=== PATIENT | male | born 1940 | race Caucasian/White ===

== ENCOUNTER 2016-10-10 21:19 | Inpatient (IN) ==
[2016-10-10] MEDS ORDERED: FUROSEMIDE 40 MG/4 ML VIAL IV STA ×2 (21:53→23:08)
[2016-10-10] MEDS ORDERED: methylPREDNISolone SOD SUC 125 MG/2 ML VIAL IV STA (21:53)
[2016-10-10] MEDS ORDERED: ASPIRIN 325 MG TABLET PO STA (21:53)
[2016-10-10] MEDS ORDERED: LEVOFLOXACIN INJ 750 MG in PREMIX 1 EACH IV STA (21:53)
[2016-10-10] MEDS ORDERED: ALBUTEROL/IPRATROPIUM 3 ML NEB RESP TX STA ×2 (21:56→23:08)
--- NOTE | 2016-10-10 21:59 | Emergency Department Note ---
Arrival - Arrival Chief Complaint: Chest Pain Stated Complaint: SOB ED Nursing Triage Note: patient to triage with cough, sob, and congestion since "around ethan" patient has been becoming increasingly weak and tired since that time. patient states has an extensive cardiac history and recently moved to the area. Mode of Arrival: Ambulatory Limitations: No Limitations Source: Patient Time Seen by Provider: 10/10/16 21:53 - History of Present Illness HPI Narrative: This 76-year-old white male new resident of the area presents after moving here from [place]. He moved around the first of the year just after having been diagnosed with the flu. However, since moving here he has had persistent dry cough, shortness of breath with rest and exertion, orthopnea, nausea, night sweats, and intermittent chest pain consistent with previous experiences with angina. The patient denies a history of COPD but has an extensive coronary artery disease history with bypass, multiple stents, femoropopliteal bypass, and congestive heart failure. Currently he appears in no acute distress. Onset (ago): month(s) (patient presents one month since onset of symptoms) Consistency: constant Severity: moderate Allergies/Adverse Reactions: Allergies Allergy/AdvReac Type Severity Reaction Status Date / Time gabapentin AdvReac UNCONSCIOUS Verified 10/10/16 21:41 Penicillins AdvReac Drowsy Verified 10/10/16 21:41 Review of System - Review of System 12 point system: reviewed and no additional remarkable complaints except as stated - Review of System Constitutional: Present: as per HPI Respiratory: Present: as per HPI Cardiovascular: Present: as per HPI Gastrointestinal: Present: as per HPI Medical,Surgical,& Family Hx - Medical History Cardio: History of: CHF, Hypertension, [place] Endocrine: History of: Diabetes Mellitus (NIDDM) Respiratory: History of: Obstructive Sleep Apnea Genitourinary: History of: Prostate Problems (prostate CA) - Surgical History Cardiac Surgeries: Sugical HX of: Femoral-Popliteal Bypass Graft, Cardiac Catheterization - Social History Smoking Status: Never smoker Frequency of Alcohol Use: None Type of Drug Use: None Exam Physical Examination: GENERAL: Well developed, well nourished white male in no acute distress. HEENT: Normocephalic. No trauma. Moist mucous membranes. EOMI. PERRLA. ENT clear NECK: Supple. No adenopathy. No JVD CARDIAC: Regular. No murmurs. Heart rate 97 CHEST: Clear to auscultation. No respiratory distress. O2 sat 94% ABDOMEN: Soft. Nontender. Active bowel sounds. EXTREMITIES: No trauma. Normal ROM. No pedal edema. SKIN: No diaphoresis. No rash. NEURO: Alert. Neuro intact. No focal deficits. Vital Signs: Vital Signs Temperature 98 F 10/10/16 21:31 Pulse Rate 82 10/10/16 22:49 Respiratory Rate 16 10/10/16 22:49 Blood Pressure 176/91 10/10/16 21:31 O2 Sat by Pulse Oximetry 98 10/10/16 22:49 Course - Reevaluation(s) Reevaluation #1: Discussed with patient that both pneumonia and congestive failure are apparent in his workup and he will need to be hospitalized for further treatment. - Consultations Consultation #1: Discussed with Dr. Blackburn, hospitalist, who will admit for further evaluation treatment. Results - Labs CBC & BMP: 10/10/16 21:59 10/10/16 21:59 Labs: I have reviewed the laboratory noted the bump and white blood cell count, the negative cardiacs, and the BNP of over 500. - Diagnostic Findings Procedure: Chest x-ray: image reviewed by me, report reviewed by me (bilateral infiltrates right greater than left) Disposition Clinical Impression: bilateral pneumonia, congestive heart failure, coronary artery disease Case discussed with: patient, patient's family Disposition: Still a Patient Condition: Guarded Time of Disposition: 23:09
--- NOTE | 2016-10-10 22:00 | EKG Report ---
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
[2016-10-10 22:12] LABS: Basophils % 0.1 % (0.0-0.8); Eosinophils # 0.4 10*3/uL (0.0-0.87); Eosinophils % 3.2 % (0.00-10.9); Hematocrit 33.3 VOL% (42.0-52.0); Hemoglobin 10.6 GM/DL (14.0-18.0); Immature Granulocytes % 0.5 %; Immature Granulocytes Absolute 0.06 #; Lymphocytes # 1.4 10*3/uL (1.4-4.0); Lymphocytes % 11.9 % (21.2-54.2); Mean Corpuscular HGB Conc 31.8 GM/DL (32-36); Mean Corpuscular Hemoglobin 29 PG (27-34); Mean Corpuscular Volume 89.8 FL (87-102); Mean Platelet Volume 9.7 FL (9.6-12.0); Monocytes # 1.2 10*3/uL (0.11-0.8); Monocytes % 9.6 % (1.7-12.7); Neutrophils % 74.7 % (38.7-73.9); Platelet Count 345 10*3/uL (130-400); Red Blood Count 3.71 10*6/uL (3.8-5.5); Red Cell Distribution Width 14.5 % (9.3-17.3); White Blood Count 12.1 10*3/uL (4.5-13.71)
[2016-10-10 22:22] LABS: PT Patient Result 11.1 SECS
[2016-10-10] MEDS ORDERED: ASPIRIN 325 MG TABLET ONE (22:22)
[2016-10-10] MEDS ORDERED: LEVOFLOXACIN INJ 150 ML IV ONE (22:22)
[2016-10-10] MEDS ORDERED: FUROSEMIDE 40 MG/4 ML VIAL ONE ×2 (22:22→23:19)
[2016-10-10] MEDS ORDERED: methylPREDNISolone SOD SUC 125 MG/2 ML VIAL ONE (22:23)
[2016-10-10 22:41] LABS: Alanine Aminotransferase 12 U/L (16-61); Albumin 2.4 G/DL (3.4-5.0); Alkaline Phosphatase 82 U/L (45-117); Aspartate Amino Transferase 11 U/L (0-37); Blood Urea Nitrogen 9 MG/DL (7-18); Glucose 201 MG/DL (74-106); Osmolality,Calculated 285.3 MOS/KG (273-304); Potassium 3.8 MMOL/L (3.5-5.1); Sodium 141 MMOL/L (136-145); Troponin I Only < 0.015 NG/ML (0.00-0.045)
--- NOTE | 2016-10-10 22:43 | XRay Report ---
History is chest pain The heart and vessels are mildly enlarged There are moderate to tickler hazy and patchy opacities throughout the right chest and minimally in the lateral left chest. Skinfold felt overlie the right upper chest Impression: Right greater than left infiltrates. Atypical, asymmetric pulmonary edema felt be a less likely consideration PROCEDURE INTERPRETED AT [facility] DEPARTMENT OF RADIOLOGY Final Report Signed by: Dr. Cher Mcclelland
[2016-10-10 22:54] LABS: Apearance,Urine CLEAR (Clear); Bilirubin,Urine Negative (Negative); Blood, Urine Negative (Negative); Glucose,Urine (UA) 50 mg/dL (Negative); Ketones,Urine Negative (Negative); Nitrite,Urine Negative (Negative); Protein,Urine 30 MG/DL; RBC,Urine 3 /HPF (0-4); Urine Color Yellow (Yellow); Urine Specific Gravity 1.013 (1.001-1.035); WBC,Urine <1 /HPF (0-6)
[2016-10-10 23:00] LABS: Barbiturates Screen,Urine Negative (Negative); Benzodiazepines Screen,Urine Negative (Negative); Cannabinoid Screen,Urine Negative (Negative); Opiate Screen,Urine Negative (Negative); Phencyclidine Screen,Urine Negative (Negative)
--- NOTE | 2016-10-11 01:56 | Hospitalist History & Physical ---
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 Nguyen is a 76 year old male with past medical history significant for coronary artery disease, congestive heart failure, hypertension, obstructive sleep apnea and prostate cancer who's been feeling, poorly ever since . Patient recently moved here from [place] and has not established care with a primary care provider. He reports that he thought he had the flu during the time and ever since then he's had fever off and on and night sweats. He notes a decreased exercise tolerance. He's had a productive cough for at least a week. He thought he was getting worse. He came up to our hospital further evaluation. He has a pneumonia by chest x-ray but a suspect he has a combination of pneumonia and congestive heart failure. I was consulted to admit the patient Home Medications Medication Instructions Recorded Confirmed Type Aromatic Cascara Fluid Extract 1 caplet PO DAILY 10/10/16 10/10/16 History [Cascara [place]] Aspirin [Ecotrin] 81 mg PO DAILY 10/10/16 10/10/16 History Cholecalciferol (Vitamin D3) 4,000 unit PO DAILY 10/10/16 10/10/16 History [Vitamin D3] Clopidogrel [Plavix] 75 mg PO DAILY 10/10/16 10/10/16 History Cyanocobalamin (Vitamin B-12) 1,000 mcg PO DAILY 10/10/16 10/10/16 History [Vitamin B-12] Diltiazem HCl [Diltiazem ER (12 120 mg PO DAILY 10/10/16 10/10/16 History hr)] Doxepin [SINEquan] 6 mg PO BEDTIME 10/10/16 10/10/16 History Glimepiride 2 mg PO AC SUPPER 10/10/16 10/10/16 History Glimepiride 4 mg PO AC BREAKFAST 10/10/16 10/10/16 History Levocetirizine Dihydrochloride 5 mg PO DAILY 10/10/16 10/10/16 History Losartan Potassium 100 mg PO DAILY 10/10/16 10/10/16 History Lovastatin 40 mg PO DAILY 10/10/16 10/10/16 History Metformin HCl 850 mg PO BID 10/10/16 10/10/16 History Pantoprazole Sodium [Protonix] 40 mg PO DAILY 10/10/16 10/10/16 History Ranolazine [Ranexa] 1,000 mg PO BID 10/10/16 10/10/16 History Vit C/Shellie AC/Lut/Copper/Znox 1 each PO AC 10/10/16 10/10/16 History [Preservision Lutein Softgel] Allergies Allergy/AdvReac Type Severity Reaction Status Date / Time gabapentin AdvReac UNCONSCIOUS Verified 10/10/16 21:41 Penicillins AdvReac Drowsy Verified 10/10/16 21:41 Medical,Surgical,& Family Hx - Medical History Cardio: History of: CHF, Hypertension, [place] Endocrine: History of: Diabetes Mellitus (NIDDM) Respiratory: History of: Obstructive Sleep Apnea Genitourinary: History of: Prostate Problems (prostate CA) - Surgical History Cardiac Surgeries: Sugical HX of: Femoral-Popliteal Bypass Graft, Cardiac Catheterization - Family History Family History: Reports;: Family Cancer, Family Heart Disease - Social History Smoking Status: Never smoker Frequency of Alcohol Use: None Type of Drug Use: None 12 point system: reviewed and no additional remarkable complaints except as stated Exam - Constitutional Vitals: Period Temp Pulse Resp BP Sys/Swann Pulse Ox Last 24 Hr 98 F 79-97 16-23 176/91 94-99 General appearance: normal weight - Eye Eye exam: Present: EOMI Pupils: Present: BEBETO - ENT ENT exam: Present: normal exam - Neck Neck exam: Present: normal inspection - Cardiovascular Cardiovascular exam: Present: regular rate and rhythm - GI/Abdominal GI/Abdominal exam: Present: normal bowel sounds - Extremities Exam Extremities exam: Present: normal inspection - Back Exam Back exam: Present: normal inspection - Neurological Exam Neurological exam: Present: alert - Psychiatric Psychiatric exam: Present: normal affect - Skin Skin exam: Present: normal color Results - Labs CBC & BMP: 10/10/16 21:59 10/10/16 21:59
[2016-10-11] MEDS ORDERED: MAGNESIUM SULF RIDER 2 GM in PREMIX 1 EACH IV PRN (02:11)
[2016-10-11] MEDS ORDERED: MAGNESIUM SULF RIDER 4 GM in PREMIX 1 EACH IV PRN (02:11)
[2016-10-11] MEDS ORDERED: ACETAMINOPHEN 325 MG TABLET PO PRN (02:11)
[2016-10-11] MEDS ORDERED: ONDANSETRON 4 MG/2 ML VIAL IV PRN (02:11)
[2016-10-11] MEDS ORDERED: ALBUTEROL 2.5 MG/3 ML NEB RESP TX PRN (02:11)
[2016-10-11] MEDS ORDERED: GLUCAGON 1 MG VIAL IM PRN (03:46)
[2016-10-11] MEDS ORDERED: DEXTROSE 50% 25 GM/50 ML VIAL IV PRN (03:46)
[2016-10-11] MEDS: ALBUTEROL/IPRATROPIUM 3 ML NEB RESP TX SCH ×3 (08:19→19:41)
[2016-10-11] MEDS ORDERED: PANTOPRAZOLE 40 MG TABLET PO SCH (09:00)
[2016-10-11] MEDS: CHOLECALCIFEROL 1,000 UNIT TABLET PO SCH (09:38)
[2016-10-11] MEDS: RANOLAZINE 500 MG TABLET PO SCH ×2 (09:39→21:24)
[2016-10-11] MEDS: CYANOCOBALAMIN 500 MCG TABLET PO SCH (09:39)
[2016-10-11] MEDS: LOSARTAN 50 MG TABLET PO SCH (09:41)
[2016-10-11] MEDS: LOVASTATIN 20 MG TABLET PO SCH (09:41)
[2016-10-11] MEDS: ASPIRIN EC 81 MG TABLET PO SCH (09:42)
[2016-10-11] MEDS: PANTOPRAZOLE 40 MG TABLET PO SCH (09:43)
[2016-10-11] MEDS: DILTIAZEM CD 120 MG CAPSULE PO SCH (09:43)
[2016-10-11] MEDS: CLOPIDOGREL 75 MG TABLET PO SCH (09:43)
[2016-10-11] MEDS: ENOXAPARIN 40 MG/0.4 ML SYRINGE SUBCUT SCH (09:48)
[2016-10-11] MEDS: INSULIN REGULAR 100 UNIT/ML SUBCUT SCH ×5 (09:51→21:24)
[2016-10-11] MEDS: FUROSEMIDE 40 MG/4 ML VIAL IV SCH ×2 (09:51→17:51)
--- NOTE | 2016-10-11 12:54 | ECHO Report ---
PatrickBeka kwongnis 10/11/2016 Exam Date: 08:05 Referring Physician: Annabelle Morales Technologist: JOHNNIE Age: 76 Ht (in): Wt (lb): MExam Location: [facility] Gender: Echo [id number]: Community acquired pneumonia, Acute Indications:excerbation of CHF, Essential (primary) hypertension, BARRERA, hx Prostate CA, Cough, Fever, NIDDM BP: / HR: SinusRhythm: Technical Quality: IMPRESSIONS Technically adequate study 3+ left atrial enlargement Normal LV function with ejection fraction at 55% without segmental wall motion normality Aortic sclerosis without stenosis 1-2 tricuspid regurgitation with RVP 29 mmHg plus RAP MEASUREMENTS (Male / Female) Normal Values 2D ECHO LV Diastolic Diameter PLAX 5.4 cm 4.2 - 5.9 / 3.9 - 5.3 cm LV Systolic Diameter PLAX 3.3 cm LV Fractional Shortening PLAX 38.3 % IVS Diastolic Thickness 1.5 cm 0.6 - 1.0 / 0.6 - 0.9 cm LVPW Diastolic Thickness 1.5 cm 0.6 - 1.0 / 0.6 - 0.9 cm RV Internal Dim ED PLAX 3.5 cm Aortic Root Diameter 3.5 cm LA Systolic Diameter LX 5.4 cm 3.0 - 4.0 / 2.7 - 3.8 cm DOPPLER TR Peak Velocity 269.0 cm/s TR Peak Gradient 28.9 mmHg FINDINGS Left Ventricle Normal left ventricular cavity size. Mild left ventricular hypertrophy. Left ventricular ejection fraction is estimated at 60 %. Right Ventricle The right ventricle is normal in size and function. Right Atrium The right atrium is mildly enlarged. Left Atrium Moderately increased left atrial size. Mitral Valve Morphologically normal mitral valve. Trace mitral valve regurgitation. Aortic Valve Aortic valve sclerosis without stenosis or regurgitation. Tricuspid Valve Morphologically normal tricuspid valve. Trace to mild tricuspid valve regurgitation. Tricuspid regurgitation velocities suggest a PAP of 39 mmHg. Pulmonic Valve Morphologically normal pulmonic valve without significant stenosis. There is no pulmonic regurgitation. Pericardium Normal pericardium without effusion. Aorta Normal ascending aorta dimension. Poli Cristobal (Electronically Signed) 11 October 2016 Final Date: 12:53
[2016-10-11] MEDS ORDERED: GLIMEPIRIDE 2 MG TABLET PO SCH (16:30)
[2016-10-11] MEDS: GLIMEPIRIDE 4 MG TABLET PO SCH (17:51)
[2016-10-11] MEDS: metFORMIN 850 MG TABLET PO SCH (21:24)
[2016-10-11] MEDS: LEVOFLOXACIN INJ 750 MG in PREMIX 1 EACH IV SCH (21:33)
[2016-10-11] MEDS: SILENOR 6 MG PO SCH (21:38)
[2016-10-12] MEDS: ALBUTEROL/IPRATROPIUM 3 ML NEB RESP TX SCH ×4 (01:21→21:39)
[2016-10-12 03:53] LABS: Basophils % 0.1 % (0.0-0.8); Eosinophils # 0.1 10*3/uL (0.0-0.87); Eosinophils % 0.6 % (0.00-10.9); Hematocrit 32.5 VOL% (42.0-52.0); Hemoglobin 10.6 GM/DL (14.0-18.0); Immature Granulocytes % 0.5 %; Immature Granulocytes Absolute 0.09 #; Lymphocytes # 1.8 10*3/uL (1.4-4.0); Mean Corpuscular HGB Conc 32.6 GM/DL (32-36); Mean Corpuscular Hemoglobin 29 PG (27-34); Mean Corpuscular Volume 88.1 FL (87-102); Mean Platelet Volume 9.6 FL (9.6-12.0); Monocytes # 1.5 10*3/uL (0.11-0.8); Monocytes % 8.5 % (1.7-12.7); Neutrophils # 14.5 10*3/uL (1.4-7.4); Neutrophils % 80.3 % (38.7-73.9); Platelet Count 341 10*3/uL (130-400); Red Blood Count 3.69 10*6/uL (3.8-5.5); Red Cell Distribution Width 14.3 % (9.3-17.3); White Blood Count 18.1 10*3/uL (4.5-13.71)
[2016-10-12 04:27] LABS: Alanine Aminotransferase 9 U/L (16-61); Albumin 2.4 G/DL (3.4-5.0); Alkaline Phosphatase 72 U/L (45-117); Aspartate Amino Transferase 5 U/L (0-37); Bilirubin,Total < 0.39 MG/DL (0.2-1.0); Blood Urea Nitrogen 21 MG/DL (7-18); Calcium 8.5 MG/DL (8.5-10.1); Glucose 163 MG/DL (74-106); Osmolality,Calculated 283.5 MOS/KG (273-304); Potassium 3.3 MMOL/L (3.5-5.1); Sodium 139 MMOL/L (136-145); Total Protein 5.9 G/DL (6.4-8.3)
[2016-10-12] MEDS ORDERED: GLIMEPIRIDE 4 MG TABLET PO SCH (07:30)
--- NOTE | 2016-10-12 09:52 | XRay Report ---
Exam: Chest 2 views Date: October 12, 2016 at 6:59 AM Comparison: Chest one view portable October 10, 2016 Reason: Shortness of breath Findings: The cardiac silhouette is upper normal in size, and the patient is status post sternotomy. There are scattered opacities within the mid and lower lung zones bilaterally, mainly on the right. This is concerning for pneumonia, but there could be an underlying component of scarring/fibrosis. No pneumothorax is identified, and no definite pleural fluid is seen. The osseous structures appear stable. Impression: There are scattered opacities within both lungs, mainly on the right. These opacities have slightly improved. This is concerning for pneumonia, but there could be underlying scarring/fibrosis. Followup is recommended to confirm resolution. PROCEDURE INTERPRETED AT [facility] DEPARTMENT OF RADIOLOGY Final Report Signed by: Dr. Joey Moralez
[2016-10-12] MEDS: INSULIN REGULAR 100 UNIT/ML SUBCUT SCH ×4 (10:18→20:35)
[2016-10-12] MEDS: FUROSEMIDE 40 MG/4 ML VIAL IV SCH ×2 (10:19→15:52)
[2016-10-12] MEDS: GLIMEPIRIDE 4 MG TABLET PO SCH ×2 (10:19→16:55)
[2016-10-12] MEDS: metFORMIN 850 MG TABLET PO SCH ×2 (10:20→20:35)
[2016-10-12] MEDS: LOSARTAN 50 MG TABLET PO SCH (10:20)
[2016-10-12] MEDS: DILTIAZEM CD 120 MG CAPSULE PO SCH (10:20)
[2016-10-12] MEDS: LOVASTATIN 20 MG TABLET PO SCH (10:20)
[2016-10-12] MEDS: ASPIRIN EC 81 MG TABLET PO SCH (10:20)
[2016-10-12] MEDS: ENOXAPARIN 40 MG/0.4 ML SYRINGE SUBCUT SCH (10:20)
[2016-10-12] MEDS: CLOPIDOGREL 75 MG TABLET PO SCH (10:20)
[2016-10-12] MEDS: PANTOPRAZOLE 40 MG TABLET PO SCH (10:21)
[2016-10-12] MEDS: RANOLAZINE 500 MG TABLET PO SCH ×2 (10:21→20:35)
[2016-10-12] MEDS: CHOLECALCIFEROL 1,000 UNIT TABLET PO SCH (10:22)
[2016-10-12] MEDS: CETIRIZINE 10 MG TABLET PO SCH (10:22)
[2016-10-12] MEDS: CYANOCOBALAMIN 500 MCG TABLET PO SCH (10:22)
--- NOTE | 2016-10-12 11:06 | Hospitalist Progress Note ---
Assessment and Plan (1) Anemia Status: Chronic Assessment and plan: Patient apparently have stable anemia probably chronic with continue monitoring Current Visit: Yes (2) Acute exacerbation of congestive heart failure Status: Acute Assessment and plan: Interval symptoms noted with the current management left ventricular ejection fraction noted patient could have diastolic dysfunction which closely as he may be sensitive to diuretics Current Visit: Yes (3) Community acquired pneumonia Status: Acute Assessment and plan: X-ray noted with bilateral opacities specially on right side with some improvement on today's x-ray reported. Symptomatically patient is better although white count is elevated today he has been on Levaquin and continue and repeat CBC tomorrow Current Visit: Yes (4) Hypertension Status: Acute Current Visit: Yes (5) Hypokalemia Status: Acute Assessment and plan: Will replace with potassium chloride Current Visit: Yes Hospitalist: Subjective Interval history: Mr. Nguyen is a 76 year old male with past medical history significant for coronary artery disease s/p CBD and multiple PCI, , congestive heart failure, hypertension, obstructive sleep apnea and prostate cancer. He was admitted yesterday after he reported having persistent dry cough shortness of breath with both dyspnea on exertion and orthopnea with intermittent fever. Reported fever 2 days prior to admission. He had just moved from [place] and has not established any primary care here. Patient was started on diuretics and antibiotics. He had echocardiogram done showed left frontal ejection fraction of 60% with mild left ventricle hypertrophy and dilated left atrium. Symptomatically improved afebrile. still coughing. Exam - Constitutional Vitals: Period Temp Pulse Resp BP Sys/Swann Pulse Ox Last 24 Hr 97.5 F-98.6 F 68-94 16-25 134-153/61-79 90-99 General appearance: no acute distress - Head Head exam: Present: normal inspection, normocephalic - Eye Eye exam: Present: EOMI Pupils: Present: BEBETO - Respiratory Respiratory exam: Present: rales (equal air entry with some rales on the right side with auscultation ). Absent: rhonchi - Cardiovascular Cardiovascular exam: Present: regular rate and rhythm. Absent: JVD, tachycardia - GI/Abdominal GI/Abdominal exam: Present: normal bowel sounds, soft. Absent: tenderness - Extremities Exam Extremities exam: Present: normal inspection. Absent: edema - Neurological Exam Neurological exam: Present: alert, oriented X3 Results - Labs CBC & BMP: 10/12/16 03:44 10/12/16 03:44 Lab Results: I have reviewed the past 24 hour labs
[2016-10-12] MEDS ORDERED: POTASSIUM CHLORIDE 20 MEQ TABLET PO ONE (11:15)
[2016-10-12] MEDS: LEVOFLOXACIN INJ 750 MG in PREMIX 1 EACH IV SCH (20:35)
[2016-10-12] MEDS: SILENOR 6 MG PO SCH (21:01)
[2016-10-13] MEDS: ALBUTEROL/IPRATROPIUM 3 ML NEB RESP TX SCH ×4 (01:15→19:34)
[2016-10-13 04:32] LABS: Eosinophils # 0.3 10*3/uL (0.0-0.87); Eosinophils % 2.5 % (0.00-10.9); Hemoglobin 11.2 GM/DL (14.0-18.0); Immature Granulocytes % 0.5 %; Immature Granulocytes Absolute 0.06 #; Lymphocytes # 1.5 10*3/uL (1.4-4.0); Lymphocytes % 12.3 % (21.2-54.2); Mean Corpuscular HGB Conc 31.1 GM/DL (32-36); Mean Corpuscular Hemoglobin 28 PG (27-34); Mean Corpuscular Volume 89.3 FL (87-102); Monocytes # 1.3 10*3/uL (0.11-0.8); Monocytes % 10.5 % (1.7-12.7); Neutrophils # 8.8 10*3/uL (1.4-7.4); Neutrophils % 74.2 % (38.7-73.9); Platelet Count 355 10*3/uL (130-400); Red Blood Count 4.03 10*6/uL (3.8-5.5); Red Cell Distribution Width 14.6 % (9.3-17.3); White Blood Count 11.9 10*3/uL (4.5-13.71)
[2016-10-13 05:04] LABS: Calcium 8.7 MG/DL (8.5-10.1); Osmolality,Calculated 281.4 MOS/KG (273-304); Potassium 4.5 MMOL/L (3.5-5.1)
[2016-10-13] MEDS: FUROSEMIDE 40 MG/4 ML VIAL IV SCH (08:30)
--- NOTE | 2016-10-13 08:42 | Hospitalist Progress Note ---
Assessment and Plan (1) Anemia Status: Chronic Assessment and plan: Hemoglobin actually improved on CBC today is Current Visit: Yes (2) Acute exacerbation of congestive heart failure Status: Acute Assessment and plan: Symptomatically improved, volume status also close to euvolemic I will DC IV Lasix and switch to by mouth diuretic. Blood pressure is not optimally controlled we will add carvedilol 6.25 mg twice a day Current Visit: Yes (3) Community acquired pneumonia Status: Acute Assessment and plan: X-ray noted with bilateral opacities specially on right side with some improvement on today's x-ray reported. Symptomatically patient is better although white count was elevated yesterday at 18.1 is down to 11.9 today with continuing Levaquin but switched to by mouth. Patient will be discharged home and he will need a follow-up x-ray in probably 2-3 weeks after recovery to make sure opacities seen cleared Current Visit: Yes (4) Hypertension Status: Acute Current Visit: Yes (5) Hypokalemia Status: Acute Assessment and plan: Resolved Current Visit: Yes Hospitalist: Subjective Interval history: Mr. Nguyen is a 76 year old male with past medical history significant for coronary artery disease s/p CBD and multiple PCI, , congestive heart failure, hypertension, obstructive sleep apnea and prostate cancer. He was admitted yesterday after he reported having persistent dry cough shortness of breath with both dyspnea on exertion and orthopnea with intermittent fever. Reported fever 2 days prior to admission. He had just moved from [place] and has not established any primary care here. Patient was started on diuretics and antibiotics. He had echocardiogram done showed left frontal ejection fraction of 60% with mild left ventricle hypertrophy and dilated left atrium. Continued to improve symptomatically and remained afebrile Exam - Constitutional Vitals: Period Temp Pulse Resp BP Sys/Swann Pulse Ox Last 24 Hr 96.7 F-98.1 F 66-79 16-20 140-166/65-77 90-99 General appearance: no acute distress - Respiratory Respiratory exam: Present: clear to auscultation bilaterally (collected entry bilaterally). Absent: rales, rhonchi - Cardiovascular Cardiovascular exam: Present: regular rate and rhythm. Absent: JVD, tachycardia - GI/Abdominal GI/Abdominal exam: Present: normal bowel sounds, soft. Absent: tenderness - Extremities Exam Extremities exam: Present: normal inspection, edema (trace if any edema bilaterally and lower extremities) - Psychiatric Psychiatric exam: Present: normal affect, normal mood Results - Labs CBC & BMP: 10/13/16 03:49 10/13/16 03:49 Lab Results: I have reviewed the past 24 hour labs
[2016-10-13] MEDS: GLIMEPIRIDE 4 MG TABLET PO SCH ×2 (08:50→17:15)
[2016-10-13] MEDS: INSULIN REGULAR 100 UNIT/ML SUBCUT SCH ×4 (08:50→21:10)
[2016-10-13] MEDS: ASPIRIN EC 81 MG TABLET PO SCH (08:50)
[2016-10-13] MEDS: DILTIAZEM CD 120 MG CAPSULE PO SCH (08:50)
[2016-10-13] MEDS: CLOPIDOGREL 75 MG TABLET PO SCH (08:51)
[2016-10-13] MEDS: CHOLECALCIFEROL 1,000 UNIT TABLET PO SCH (08:51)
[2016-10-13] MEDS: RANOLAZINE 500 MG TABLET PO SCH ×2 (08:51→20:48)
[2016-10-13] MEDS: PANTOPRAZOLE 40 MG TABLET PO SCH (08:51)
[2016-10-13] MEDS: CETIRIZINE 10 MG TABLET PO SCH (08:51)
[2016-10-13] MEDS: LOVASTATIN 20 MG TABLET PO SCH (08:51)
[2016-10-13] MEDS: ENOXAPARIN 40 MG/0.4 ML SYRINGE SUBCUT SCH (08:51)
[2016-10-13] MEDS: LOSARTAN 50 MG TABLET PO SCH (08:51)
[2016-10-13] MEDS: metFORMIN 850 MG TABLET PO SCH ×2 (08:51→20:48)
[2016-10-13] MEDS: CYANOCOBALAMIN 500 MCG TABLET PO SCH (08:51)
[2016-10-13] MEDS: FUROSEMIDE 40 MG TABLET PO SCH ×2 (10:13→17:14)
[2016-10-13] MEDS: POLYETHYLENE GLYCOL POWDER 17 GM PACK PO SCH (10:50)
[2016-10-13] MEDS: CARVEDILOL 6.25 MG TABLET PO SCH ×2 (15:26→20:48)
[2016-10-13] MEDS: SILENOR 6 MG PO SCH (21:10)
[2016-10-14] MEDS: ALBUTEROL/IPRATROPIUM 3 ML NEB RESP TX SCH ×4 (00:17→19:45)
[2016-10-14] MEDS: POLYETHYLENE GLYCOL POWDER 17 GM PACK PO SCH (08:45)
[2016-10-14] MEDS: INSULIN REGULAR 100 UNIT/ML SUBCUT SCH ×4 (08:46→21:44)
[2016-10-14] MEDS: metFORMIN 850 MG TABLET PO SCH ×2 (08:46→20:57)
[2016-10-14] MEDS: ENOXAPARIN 40 MG/0.4 ML SYRINGE SUBCUT SCH (08:46)
[2016-10-14] MEDS: CYANOCOBALAMIN 500 MCG TABLET PO SCH (08:47)
[2016-10-14] MEDS: CARVEDILOL 6.25 MG TABLET PO SCH ×2 (08:47→20:58)
[2016-10-14] MEDS: CETIRIZINE 10 MG TABLET PO SCH (08:47)
[2016-10-14] MEDS: ASPIRIN EC 81 MG TABLET PO SCH (08:47)
[2016-10-14] MEDS: LEVOFLOXACIN 750 MG TABLET PO SCH (08:47)
[2016-10-14] MEDS: LOSARTAN 50 MG TABLET PO SCH (08:48)
[2016-10-14] MEDS: CHOLECALCIFEROL 1,000 UNIT TABLET PO SCH (08:48)
[2016-10-14] MEDS: GLIMEPIRIDE 4 MG TABLET PO SCH ×2 (08:49→16:11)
[2016-10-14] MEDS: FUROSEMIDE 40 MG TABLET PO SCH ×2 (08:49→16:11)
[2016-10-14] MEDS: CLOPIDOGREL 75 MG TABLET PO SCH (08:49)
[2016-10-14] MEDS: LOVASTATIN 20 MG TABLET PO SCH (08:49)
[2016-10-14] MEDS: RANOLAZINE 500 MG TABLET PO SCH ×2 (08:49→20:58)
[2016-10-14] MEDS: PANTOPRAZOLE 40 MG TABLET PO SCH (08:50)
--- NOTE | 2016-10-14 17:00 | Hospitalist Progress Note ---
Assessment and Plan (1) Community acquired pneumonia Status: Acute Assessment and plan: 1)CAP- likely gram positive- continue levaquin. 2)acute CHF- diuresed, coreg started. doing well. His heart failure is diastolic - his EF is 55% on echo. 3)dispo- home likely tomorrow. will need to choose a doctor for PCP so he can have outpatient follow up with CXR to document resolution of infiltrates. Current Visit: Yes (2) Acute exacerbation of congestive heart failure Status: Acute Current Visit: Yes (3) Hypertension Status: Acute Current Visit: Yes (4) Obstructive sleep apnea Status: Acute Current Visit: Yes (5) History of prostate cancer Status: Acute Current Visit: Yes (6) Anemia Status: Chronic Current Visit: Yes (7) Hypokalemia Status: Acute Current Visit: Yes Hospitalist: Subjective Interval history: Mr Nguyen is doing well, but continues to cough and his room air sat is 88%. He has had high blood sugars as high as 400, most recently 187. He would like to go home and I think if his sats are better on room air tomorrow , he is able to get around room on room air, and his glucoses are under better control he could go home. Exam - Constitutional Vitals: Period Temp Pulse Resp BP Sys/Swann Pulse Ox Last 24 Hr 97 F-99 F 65-79 16-20 139-160/61-75 92-98 General appearance: normal weight, no acute distress - Head Head exam: Present: normocephalic, atraumatic - Eye Eye exam: Present: EOMI. Absent: scleral icterus - Respiratory Respiratory exam: Present: rales (right lung field) - Cardiovascular Cardiovascular exam: Present: regular rate and rhythm - GI/Abdominal GI/Abdominal exam: Present: normal bowel sounds, soft. Absent: tenderness - Extremities Exam Extremities exam: Absent: edema Results - Labs CBC & BMP: 10/13/16 03:49 10/13/16 03:49 Lab Results: I have reviewed the past 24 hour labs
[2016-10-14] MEDS: SILENOR 6 MG PO SCH (20:58)
[2016-10-15] MEDS: ALBUTEROL/IPRATROPIUM 3 ML NEB RESP TX SCH ×4 (01:12→20:30)
[2016-10-15] MEDS: CHOLECALCIFEROL 1,000 UNIT TABLET PO SCH (08:29)
[2016-10-15] MEDS: POLYETHYLENE GLYCOL POWDER 17 GM PACK PO SCH (08:29)
[2016-10-15] MEDS: ENOXAPARIN 40 MG/0.4 ML SYRINGE SUBCUT SCH (08:29)
[2016-10-15] MEDS: INSULIN REGULAR 100 UNIT/ML SUBCUT SCH ×4 (08:29→21:14)
[2016-10-15] MEDS: FUROSEMIDE 40 MG TABLET PO SCH ×2 (08:30→16:29)
[2016-10-15] MEDS: CLOPIDOGREL 75 MG TABLET PO SCH (08:30)
[2016-10-15] MEDS: LOVASTATIN 20 MG TABLET PO SCH (08:30)
[2016-10-15] MEDS: ASPIRIN EC 81 MG TABLET PO SCH (08:31)
[2016-10-15] MEDS: CYANOCOBALAMIN 500 MCG TABLET PO SCH (08:31)
[2016-10-15] MEDS: RANOLAZINE 500 MG TABLET PO SCH ×2 (08:31→21:13)
[2016-10-15] MEDS: LOSARTAN 50 MG TABLET PO SCH (08:31)
[2016-10-15] MEDS: metFORMIN 850 MG TABLET PO SCH ×2 (08:32→21:13)
[2016-10-15] MEDS: LEVOFLOXACIN 750 MG TABLET PO SCH (08:32)
[2016-10-15] MEDS: CARVEDILOL 6.25 MG TABLET PO SCH ×2 (08:32→21:13)
[2016-10-15] MEDS: CETIRIZINE 10 MG TABLET PO SCH (08:32)
[2016-10-15] MEDS: PANTOPRAZOLE 40 MG TABLET PO SCH (08:32)
[2016-10-15] MEDS: GLIMEPIRIDE 4 MG TABLET PO SCH ×2 (08:32→16:29)
--- NOTE | 2016-10-15 10:40 | Hospitalist Progress Note ---
Assessment and Plan (1) Community acquired pneumonia Status: Acute Assessment and plan: Prolonged course historically with radiographic right lung infiltrate, still with reduced SaO2 off oxygen. Does have BARRERA under active therapy however echocardiogram showed no evidence of pulmonary hypertension. Current Visit: Yes (2) Diabetes mellitus Status: Chronic Current Visit: Yes Qualifiers: Diabetes mellitus type: type 2 (3) Atherosclerotic cardiovascular disease Status: Chronic Assessment and plan: History ACBG and fem-pop bypass grafting Current Visit: Yes Hospitalist: Subjective Interval history: 76 yo male with history of obstructive sleep apnea, ischemic cardiac disease ( normal LVEF), and several weeks of respiratory complaints with fever, cough, and night sweats admitted with right lung infiltrate predominately peripheral and mid lung zones with small effusion. Continues to have stable vital signs, however still using O2 supplementation. Exam - Constitutional Vitals: Period Temp Pulse Resp BP Sys/Swann Pulse Ox Last 24 Hr 97 F-98.9 F 67-86 16-20 134-155/63-72 92-99 General appearance: under weight - Respiratory Respiratory exam: Present: other (coarse breath sounds on the right). Absent: rales, rhonchi, wheezes - Cardiovascular Cardiovascular exam: Present: regular rate and rhythm - GI/Abdominal GI/Abdominal exam: Present: normal bowel sounds. Absent: distended, tenderness - Extremities Exam Extremities exam: Absent: edema - Neurological Exam Neurological exam: Present: alert, oriented X3 Results - Labs CBC & BMP: 10/13/16 03:49 10/13/16 03:49
[2016-10-15] MEDS: SILENOR 6 MG PO SCH (21:14)
[2016-10-16] MEDS: ALBUTEROL/IPRATROPIUM 3 ML NEB RESP TX SCH ×4 (00:42→20:10)
[2016-10-16 05:15] LABS: Osmolality,Calculated 279.7 MOS/KG (273-304); Potassium 4.2 MMOL/L (3.5-5.1)
--- NOTE | 2016-10-16 08:16 | Hospitalist Progress Note ---
Assessment and Plan (1) Community acquired pneumonia Status: Acute Assessment and plan: Prolonged course historically with radiographic right lung infiltrate, still not tolerant off oxygen. Does have BARRERA under active therapy however echocardiogram showed no evidence of pulmonary hypertension. Current Visit: Yes (2) Diabetes mellitus Status: Chronic Current Visit: Yes Qualifiers: Diabetes mellitus type: type 2 (3) Atherosclerotic cardiovascular disease Status: Chronic Assessment and plan: History ACBG and fem-pop bypass grafting Current Visit: Yes Hospitalist: Subjective Interval history: 76 yo male prolonged respiratory illness since [place] with cough, night sweats, dyspnea admitted with pulmonary infiltrates. LV systolic performance intact by echocardiogram. Continues afebrile with night sweats. Trial off O2 yesterday with recorded SaO2 of 95%. He feels no better at this time. Exam - Constitutional Vitals: Period Temp Pulse Resp BP Sys/Swann Pulse Ox Last 24 Hr 96.9 F-98.9 F 71-81 16-20 106-134/57-66 91-98 General appearance: under weight - Respiratory Respiratory exam: Absent: rales, rhonchi, wheezes - Cardiovascular Cardiovascular exam: Present: regular rate and rhythm - GI/Abdominal GI/Abdominal exam: Present: normal bowel sounds. Absent: organomegaly - Extremities Exam Extremities exam: Absent: edema - Neurological Exam Neurological exam: Present: alert, oriented X3 Results - Labs CBC & BMP: 10/13/16 03:49 10/16/16 04:24
[2016-10-16] MEDS: GLIMEPIRIDE 4 MG TABLET PO SCH ×2 (08:38→18:02)
[2016-10-16] MEDS: FUROSEMIDE 40 MG TABLET PO SCH ×2 (08:38→16:30)
[2016-10-16] MEDS: RANOLAZINE 500 MG TABLET PO SCH ×2 (08:39→20:58)
[2016-10-16] MEDS: CYANOCOBALAMIN 500 MCG TABLET PO SCH (08:39)
[2016-10-16] MEDS: LEVOFLOXACIN 750 MG TABLET PO SCH (08:39)
[2016-10-16] MEDS: ASPIRIN EC 81 MG TABLET PO SCH (08:39)
[2016-10-16] MEDS: PANTOPRAZOLE 40 MG TABLET PO SCH (08:39)
[2016-10-16] MEDS: LOSARTAN 50 MG TABLET PO SCH (08:39)
[2016-10-16] MEDS: ENOXAPARIN 40 MG/0.4 ML SYRINGE SUBCUT SCH (08:39)
[2016-10-16] MEDS: POLYETHYLENE GLYCOL POWDER 17 GM PACK PO SCH (08:39)
[2016-10-16] MEDS: CARVEDILOL 6.25 MG TABLET PO SCH ×2 (08:39→20:58)
[2016-10-16] MEDS: metFORMIN 850 MG TABLET PO SCH (08:39)
[2016-10-16] MEDS: CLOPIDOGREL 75 MG TABLET PO SCH (08:39)
[2016-10-16] MEDS: LOVASTATIN 20 MG TABLET PO SCH (08:39)
[2016-10-16] MEDS: CETIRIZINE 10 MG TABLET PO SCH (08:40)
[2016-10-16] MEDS: CHOLECALCIFEROL 1,000 UNIT TABLET PO SCH (08:40)
[2016-10-16] MEDS: INSULIN REGULAR 100 UNIT/ML SUBCUT SCH ×4 (08:41→20:57)
--- NOTE | 2016-10-16 11:44 | Pulmonology Consult Note ---
Assessment and Plan (1) Community acquired pneumonia Status: Acute Assessment and plan: His community-acquired pneumonia seems have followed the flu. A broader spectrum of bacteria. Would be concerned about possible staph. My concern is with no improvement in symptoms that he may have a resistant organism. Also must consider pulmonary thromboembolic disease. Metastatic disease would be far less likely. We will obtain chest CT PE protocol and plan bronchoscopy in the morning. He is on metformin so we will have to hold that and wait on the CT until early childhood education specialist. Current Visit: Yes (2) Obstructive sleep apnea Status: Acute Assessment and plan: Patient is using his CPAP at night regularly. Current Visit: Yes (3) History of prostate cancer Status: Acute Assessment and plan: No signs of any recurrent disease. Current Visit: Yes (4) Diabetes mellitus Status: Chronic Assessment and plan: Glucoses in the 200s and 300s. Needs tighter control. Current Visit: Yes Qualifiers: Diabetes mellitus type: type 2 (5) Atherosclerotic cardiovascular disease Status: Chronic Assessment and plan: No active angina. Normal LV function. Current Visit: Yes History of Present Illness Chief complaint: cough, shortness of breath History of present illness: Mr. Nguyen is a 76 year old male who had the onset of a flulike illness about a month ago living in [facility]. He had fever cough and congestion not really aching all over. He had a flu shot this year. He moved to [place]. He's purchased a plot of land outside of town and his son who works at the [employer] is going to retire and help take care of him in his old age there is he put it. The patient is a . He has a history of coronary disease and is had coronary bypass surgery and heart stents both more than 10 years ago. He has nitroglycerin but rarely has to use any. He is a nonsmoker. Since he got here he's had worsening symptoms with increased cough sputum production and a little fever. He's had night sweats. He's been in the hospital now for 5 days and just hasn't gotten better. He's not had any phlebitis. He's not coughed up any blood. He's not had any pleuritic chest pain. He is diabetic. He has obstructive sleep apnea. He had an echocardiogram during this hospitalization showing normal LV function and an estimated PA peak pressure of 39 which is not significantly elevated under the circumstances. Home Medications Medication Instructions Recorded Confirmed Type Aromatic Cascara Fluid Extract 1 caplet PO DAILY 10/10/16 10/10/16 History [Cascara Sagrada] Aspirin [Ecotrin] 81 mg PO DAILY 10/10/16 10/10/16 History Cholecalciferol (Vitamin D3) 4,000 unit PO DAILY 10/10/16 10/10/16 History [Vitamin D3] Clopidogrel [Plavix] 75 mg PO DAILY 10/10/16 10/10/16 History Cyanocobalamin (Vitamin B-12) 1,000 mcg PO DAILY 10/10/16 10/10/16 History [Vitamin B-12] Diltiazem HCl [Diltiazem ER (12 120 mg PO DAILY 10/10/16 10/10/16 History hr)] Doxepin [SINEquan] 6 mg PO BEDTIME 10/10/16 10/10/16 History Glimepiride 2 mg PO AC SUPPER 10/10/16 10/10/16 History Glimepiride 4 mg PO AC BREAKFAST 10/10/16 10/10/16 History Levocetirizine Dihydrochloride 5 mg PO DAILY 10/10/16 10/10/16 History Losartan Potassium 100 mg PO DAILY 10/10/16 10/10/16 History Lovastatin 40 mg PO DAILY 10/10/16 10/10/16 History Metformin HCl 850 mg PO BID 10/10/16 10/10/16 History Pantoprazole Sodium [Protonix] 40 mg PO DAILY 10/10/16 10/10/16 History Ranolazine [Ranexa] 1,000 mg PO BID 10/10/16 10/10/16 History Vit C/Shellie AC/Lut/Copper/Znox 1 each PO AC 10/10/16 10/10/16 History [Preservision Lutein Softgel] Allergies Allergy/AdvReac Type Severity Reaction Status Date / Time gabapentin AdvReac UNCONSCIOUS Verified 10/10/16 21:41 Penicillins AdvReac Drowsy Verified 10/10/16 21:41 12 point system: reviewed and no additional remarkable complaints except as stated - Constitutional Constitutional: Present: excessive sweating, fatigue, fever(s), night sweats - Cardiovascular Cardiovascular: Present: dyspnea, dyspnea on exertion - Respiratory Respiratory: Present: cough, dyspnea, dyspnea on exertion, change in phlegm color - Endocrine Endocrine: Present: other (he is diabetic on oral medications. They include metformin.) Exam (Pulmonay) H&P - Constitutional Vitals: Period Temp Pulse Resp BP Sys/Swann Pulse Ox Last 24 Hr 96.9 F-98.9 F 67-81 16-20 106-135/57-69 91-99 Exam: Patient is alert oriented. Cooperative. Vital signs are normal. He has no fever. HEENT: Pupils react to light. Throat is clear. Neck supple no bruits. Chest shows a few rhonchi on the right side but basically clear. Heart normal rate rhythm no murmurs no rubs no gallops. Abdomen soft nontender no masses. Bowel sounds are present. Extremities no clubbing cyanosis or edema. Calves nontender. Medical,Surgical,& Family Hx - Medical History Cardio: History of: CHF, Hypertension, [place], Cardiovascular Problems Neurology: History of: Peripheral Neuropathy Endocrine: History of: Diabetes Mellitus (NIDDM) Respiratory: History of: Obstructive Sleep Apnea Genitourinary: History of: Prostate Problems (prostate CA) Gastrointestinal: History of: GERD - Surgical History Cardiac Surgeries: Sugical HX of: Femoral-Popliteal Bypass Graft, Cardiac Catheterization Neurologic Surgeries: Patient denies: Neurologic Surgery - Family History Family History: Reports;: Family Cancer, Family Heart Disease - Social History Smoking Status: Never smoker Frequency of Alcohol Use: None Type of Drug Use: None Results - Labs CBC & BMP: 10/13/16 03:49 10/16/16 04:24 Lab Results: I have reviewed the past 24 hour labs - Diagnostic Findings Procedure: Chest x-ray: image reviewed by me (peripheral infiltrates in the right upper and mid lung field. Little change from admission x-ray.)
[2016-10-16 12:33] LABS: INR 1.1; PT Patient Result 11.4 SECS; Partial Thromboplastin Time 29.9 SECS (0-40)
[2016-10-16] MEDS: methylPREDNISolone SOD SUC 40 MG/1 ML VIAL IV SCH (14:46)
[2016-10-16] MEDS: VANCOMYCIN INJ 1,250 MG in SODIUM CHLORIDE 0.9% 250 ML IV SCH (17:59)
[2016-10-16] MEDS: SILENOR 6 MG PO SCH (20:59)
[2016-10-17] MEDS: methylPREDNISolone SOD SUC 40 MG/1 ML VIAL IV SCH ×2 (00:30→12:23)
[2016-10-17] MEDS: ALBUTEROL/IPRATROPIUM 3 ML NEB RESP TX SCH ×4 (02:02→18:57)
[2016-10-17] MEDS: VANCOMYCIN INJ 1,250 MG in SODIUM CHLORIDE 0.9% 250 ML IV SCH ×2 (04:10→16:11)
[2016-10-17 05:36] LABS: Calcium 9.1 MG/DL (8.5-10.1); Magnesium 1.7 MG/DL (1.8-2.4); Osmolality,Calculated 291.7 MOS/KG (273-304); Potassium 4.5 MMOL/L (3.5-5.1)
[2016-10-17] MEDS ORDERED: MEPERIDINE 50 MG/1 ML VIAL IM ONE (07:00)
[2016-10-17] MEDS ORDERED: PROMETHAZINE 25 MG/1 ML VIAL IM ONE (07:00)
[2016-10-17] MEDS ORDERED: MIDAZOLAM 2 MG/2 ML VIAL ONE (07:15)
--- NOTE | 2016-10-17 07:27 | CT Report ---
History is unresolved infiltrates and hypoxemia. Axial images obtained with 2-D multiplanar reconstruction images stored and interpreted 80 cc Omnipaque 350 utilized. There is mild loss the contrast bolus in the lung bases. No persistent filling defects seen to suggest pulmonary emboli. Coronary artery calcifications present at sclerotic changes in the aorta as well. No enlarged mediastinal or hilar nodes seen. 8mm right infrahilar node present. There is incomplete visualization of the left adrenal gland the with suspected volume averaging. As chronic changes in the upper abdomen present. There are patchy and reticular and Ayaka opacities bilaterally more pronounced on the right. These are more pronounced peripherally with some more confluent areas peripherally in the right chest. Impression: 1. Atypical right greater than left infiltrates. Followup until clear is necessary 2. No evidence of pulmonary embolus seen 3. Atherosclerotic changes PROCEDURE INTERPRETED AT [facility] DEPARTMENT OF RADIOLOGY Final Report Signed by: Dr. Cher Mcclelland
[2016-10-17] MEDS ORDERED: LIDOCAINE 1% 20 ML VIAL MISC INJ ONE (07:30)
[2016-10-17] MEDS ORDERED: MIDAZOLAM 2 MG/2 ML VIAL IV ONE (07:30)
--- NOTE | 2016-10-17 07:53 | Pulmonology Progress Note ---
Pulmonary - PN: Subj Interval history: This 76-year-old white male has had a respiratory infection going on for about a month. He has continued to be short of breath. He has infiltrates bilaterally primarily in the superior segment right lower lobe. He had a CT angiogram this morning showing no evidence of pulmonary emboli. He is for bronchoscopy to evaluate unresolved pneumonia. That is dictated separately. Exam (Progress Note) - Constitutional Vitals: Period Temp Pulse Resp BP Sys/Swann Pulse Ox Last 24 Hr 97.1 F-97.3 F 71-99 12-20 99-144/62-86 94-100 Exam: He is alert oriented afebrile. Pupils react to light. Throat is clear. Neck supple no bruits. Chest reveals some scattered rhonchi more on the right lower lobe. Heart normal rate rhythm no murmurs. Abdomen soft nontender no masses. Bowel sounds present. Extremities no clubbing cyanosis or edema. Calves nontender. Results - Labs CBC & BMP: 10/13/16 03:49 10/17/16 04:50 Lab Results: I have reviewed the past 24 hour labs - Diagnostic Findings Procedure: CT - chest: image reviewed by me (no emboli. Patchy infiltrates bilaterally. The most involved area appears to be the right lower lobe especially the superior segment.) Assessment and Plan (1) Community acquired pneumonia Status: Acute Assessment and plan: His community-acquired pneumonia seems have followed the flu. A broader spectrum of bacteria. Would be concerned about possible staph. My concern is with no improvement in symptoms that he may have a resistant organism. Also must consider pulmonary thromboembolic disease. Metastatic disease would be far less likely. We will obtain chest CT PE protocol and plan bronchoscopy in the morning. 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 10/17/16 This basically is an unresolved pneumonia. Further evaluation in progress. Patient on broad-spectrum antibiotics. Current Visit: Yes (2) Obstructive sleep apnea Status: Acute Assessment and plan: Patient is using his CPAP at night regularly. Current Visit: Yes (3) History of prostate cancer Status: Acute Assessment and plan: No signs of any recurrent disease. Current Visit: Yes (4) Diabetes mellitus Status: Chronic Assessment and plan: Glucoses in the 200s and 300s. Needs tighter control. 10/17/2016 glucose is still elevated. Current Visit: Yes Qualifiers: Diabetes mellitus type: type 2 (5) Atherosclerotic cardiovascular disease Status: Chronic Assessment and plan: No active angina. Normal LV function. Current Visit: Yes
--- NOTE | 2016-10-17 07:58 | Operative Note ---
Date of procedure: 10/17/16 (fiberoptic bronchoscopy with brushings right lower lobe) Pre-op diagnosis: unresolved pneumonia rule out endobronchial lesion Post-op diagnosis: same (no endobronchial lesions seen, retained secretions noted in both lower lobes.) Procedure: After an appropriate timeout to be sure we were dealing with Hubert Nguyen, the patient was topically anesthetized in the nose and nasopharynx with Xylocaine. He had been given preoperative medication on the mendez. 3 L of nasal oxygen was placed in his left naris. He was given 2 mg of Versed intravenously to the point of sedation. The fiberoptic bronchoscope was introduced via the right naris. The vocal cords were identified and noted to function normally with phonation. After further topical anesthesia the trachea was entered. It was somewhat erythematous but no lesions were seen. The satya was sharp. There were some retained secretions bilaterally primarily in the lower lobes. Small mucous plug was removed from the left lower lobe. Diffuse erythema once again was noted. The fiberoptic bronchoscope was introduced into the superior segment right lower lobe and we obtained brushings primarily from that segment. Bronchial washings were obtained from there and the right basilar segments. There was no bleeding following the brushings. The bronchoscope was removed and the patient returned to his room in stable condition. Anesthesia: conscious sedation Surgeon / Physician: Anatoly Montalvo Estimated blood loss: none Specimens: other (bronchial brushings 3 right lower lobe, bronchial washings) Condition: stable Disposition: floor Results - Labs CBC & BMP: 10/13/16 03:49 10/17/16 04:50 Discharge Plan - Discharge Medications No Action Lovastatin 40 mg PO DAILY Levocetirizine Dihydrochloride 5 mg PO DAILY Pantoprazole Sodium [Protonix] 40 mg PO DAILY Losartan Potassium 100 mg PO DAILY Vit C/Shellie AC/Lut/Copper/Znox [Preservision Lutein Softgel] 1 each PO AC Diltiazem HCl [Diltiazem ER (12 hr)] 120 mg PO DAILY Cyanocobalamin (Vitamin B-12) [Vitamin B-12] 1,000 mcg PO DAILY Ranolazine [Ranexa] 1,000 mg PO BID Aromatic Cascara Fluid Extract [Cascara Sagrada] 1 caplet PO DAILY Glimepiride 2 mg PO AC SUPPER Glimepiride 4 mg PO AC BREAKFAST Aspirin [Ecotrin] 81 mg PO DAILY Doxepin [SINEquan] 6 mg PO BEDTIME Cholecalciferol (Vitamin D3) [Vitamin D3] 4,000 unit PO DAILY Metformin HCl 850 mg PO BID Clopidogrel [Plavix] 75 mg PO DAILY - Follow Up or Referral - Forms/Instructions
[2016-10-17] MEDS: CLOPIDOGREL 75 MG TABLET PO SCH (10:00)
[2016-10-17] MEDS: ASPIRIN EC 81 MG TABLET PO SCH (10:00)
[2016-10-17] MEDS: GLIMEPIRIDE 4 MG TABLET PO SCH ×2 (10:00→16:16)
[2016-10-17] MEDS: LOVASTATIN 20 MG TABLET PO SCH (10:00)
[2016-10-17] MEDS: LOSARTAN 50 MG TABLET PO SCH (10:00)
[2016-10-17] MEDS: POLYETHYLENE GLYCOL POWDER 17 GM PACK PO SCH (10:00)
[2016-10-17] MEDS: LEVOFLOXACIN 750 MG TABLET PO SCH (10:00)
[2016-10-17] MEDS: FUROSEMIDE 40 MG TABLET PO SCH ×2 (10:00→16:11)
[2016-10-17] MEDS: CARVEDILOL 6.25 MG TABLET PO SCH ×2 (10:00→20:16)
--- NOTE | 2016-10-17 10:44 | Hospitalist Progress Note ---
Assessment and Plan (1) Community acquired pneumonia Status: Acute Assessment and plan: Prolonged course historically with radiographic right lung infiltrate, still not tolerant off oxygen. Does have BARRERA under active therapy however echocardiogram showed no evidence of pulmonary hypertension. Current Visit: Yes (2) Diabetes mellitus Status: Chronic Current Visit: Yes Qualifiers: Diabetes mellitus type: type 2 (3) Atherosclerotic cardiovascular disease Status: Chronic Assessment and plan: History ACBG and fem-pop bypass grafting Current Visit: Yes Hospitalist: Subjective Interval history: 76 yo male with prolonged respiratory illness with cough, night sweats, and dyspnea was admitted with bilateral pulmonary infiltrates. No fever in house, still with night sweats and dyspnea. This morning had bronchoscopy completed and tolerated well. Vitals stable overnight. Exam - Constitutional Vitals: Period Temp Pulse Resp BP Sys/Swann Pulse Ox Last 24 Hr 97.1 F-97.6 F 78-99 12-20 84-144/48-86 93-100 General appearance: under weight - Respiratory Respiratory exam: Present: clear to auscultation bilaterally. Absent: rales, rhonchi, wheezes - Cardiovascular Cardiovascular exam: Present: regular rate and rhythm - GI/Abdominal GI/Abdominal exam: Present: normal bowel sounds - Extremities Exam Extremities exam: Absent: edema - Neurological Exam Neurological exam: Present: alert, oriented X3 Results - Labs CBC & BMP: 10/13/16 03:49 10/17/16 04:50
[2016-10-17] MEDS: INSULIN REGULAR 100 UNIT/ML SUBCUT SCH ×5 (10:59→20:17)
[2016-10-17] MEDS: ENOXAPARIN 40 MG/0.4 ML SYRINGE SUBCUT SCH (11:03)
[2016-10-17] MEDS: RANOLAZINE 500 MG TABLET PO SCH ×2 (11:05→20:16)
[2016-10-17] MEDS: CYANOCOBALAMIN 500 MCG TABLET PO SCH (11:05)
[2016-10-17] MEDS: CHOLECALCIFEROL 1,000 UNIT TABLET PO SCH (11:05)
[2016-10-17] MEDS: PANTOPRAZOLE 40 MG TABLET PO SCH (11:05)
[2016-10-17] MEDS: CETIRIZINE 10 MG TABLET PO SCH (11:05)
[2016-10-17] MEDS: MAGNESIUM HYDROXIDE SUSP 30 ML UDCUP PO PRN ×2 (11:30→20:16)
[2016-10-17] MEDS ORDERED: DEXTROSE 50% 25 GM/50 ML VIAL IV PRN (13:03)
[2016-10-17] MEDS ORDERED: MAGNESIUM HYDROXIDE SUSP 30 ML UDCUP ONE (13:12)
[2016-10-17] MEDS: SILENOR 6 MG PO SCH (20:17)
[2016-10-18] MEDS: methylPREDNISolone SOD SUC 40 MG/1 ML VIAL IV SCH ×2 (00:11→09:42)
[2016-10-18] MEDS: ALBUTEROL/IPRATROPIUM 3 ML NEB RESP TX SCH ×4 (01:11→20:08)
[2016-10-18] MEDS: VANCOMYCIN INJ 1,250 MG in SODIUM CHLORIDE 0.9% 250 ML IV SCH ×2 (03:58→16:40)
[2016-10-18 06:09] LABS: Calcium 8.8 MG/DL (8.5-10.1); Magnesium 2.2 MG/DL (1.8-2.4); Osmolality,Calculated 295.5 MOS/KG (273-304); Potassium 4.9 MMOL/L (3.5-5.1)
--- NOTE | 2016-10-18 07:48 | Pulmonology Progress Note ---
Pulmonary - PN: Subj Interval history: This 76-year-old white male has had a respiratory infection going on for about a month. He has continued to be short of breath. He has infiltrates bilaterally primarily in the superior segment right lower lobe. He had a CT angiogram this morning showing no evidence of pulmonary emboli. He is for bronchoscopy to evaluate unresolved pneumonia. That is dictated separately. 10/18/2016 patient is feeling better this morning. He continues to have night sweats but says that they've gone on for many months. Doubt if there part of the current process. Cultures and cytology are pending from yesterday's bronchoscopy. Continue IV medications for now. Recheck chest x-ray tomorrow. Exam (Progress Note) - Constitutional Vitals: Period Temp Pulse Resp BP Sys/Swann Pulse Ox Last 24 Hr 96.7 F-97.6 F 73-97 15-25 84-130/48-69 91-100 Exam: He is alert oriented afebrile. Pupils react to light. Throat is clear. Neck supple no bruits. Chest reveals a few rhonchi more on the right lower lobe. Heart normal rate rhythm no murmurs. Abdomen soft nontender no masses. Bowel sounds present. Extremities no clubbing cyanosis or edema. Calves nontender. Chest sounds better today than yesterday. Results - Labs CBC & BMP: 10/13/16 03:49 10/18/16 04:15 Lab Results: I have reviewed the past 24 hour labs Assessment and Plan (1) Community acquired pneumonia Status: Acute Assessment and plan: His community-acquired pneumonia seems have followed the flu. A broader spectrum of bacteria. Would be concerned about possible staph. My concern is with no improvement in symptoms that he may have a resistant organism. Also must consider pulmonary thromboembolic disease. Metastatic disease would be far less likely. We will obtain chest CT PE protocol and plan bronchoscopy in the morning. He is on metformin so we will have to hold that and wait on the CT until electrician research. 10/17/16 This basically is an unresolved pneumonia. Further evaluation in progress. Patient on broad-spectrum antibiotics. 10/18/2016 continuing broad-spectrum antibiotics pending cultures. Follow vancomycin levels and renal function. Current Visit: Yes (2) Obstructive sleep apnea Status: Acute Assessment and plan: Patient is using his CPAP at night regularly. Current Visit: Yes (3) History of prostate cancer Status: Acute Assessment and plan: No signs of any recurrent disease. Current Visit: Yes (4) Diabetes mellitus Status: Chronic Assessment and plan: Glucoses in the 200s and 300s. Needs tighter control. 10/17/2016 glucose is still elevated. 10/18/2016 glucoses in 300s and 400s. Increase insulin. Reduce steroids a little. Current Visit: Yes Qualifiers: Diabetes mellitus type: type 2 (5) Atherosclerotic cardiovascular disease Status: Chronic Assessment and plan: No active angina. Normal LV function. Current Visit: Yes
[2016-10-18] MEDS: CHOLECALCIFEROL 1,000 UNIT TABLET PO SCH (09:34)
[2016-10-18] MEDS: ASPIRIN EC 81 MG TABLET PO SCH (09:35)
[2016-10-18] MEDS: CETIRIZINE 10 MG TABLET PO SCH (09:35)
[2016-10-18] MEDS: FUROSEMIDE 40 MG TABLET PO SCH ×2 (09:35→16:39)
[2016-10-18] MEDS: RANOLAZINE 500 MG TABLET PO SCH ×2 (09:35→21:46)
[2016-10-18] MEDS: LOVASTATIN 20 MG TABLET PO SCH (09:35)
[2016-10-18] MEDS: LOSARTAN 50 MG TABLET PO SCH (09:35)
[2016-10-18] MEDS: CYANOCOBALAMIN 500 MCG TABLET PO SCH (09:35)
[2016-10-18] MEDS: PANTOPRAZOLE 40 MG TABLET PO SCH (09:36)
[2016-10-18] MEDS: GLIMEPIRIDE 4 MG TABLET PO SCH ×2 (09:36→16:39)
[2016-10-18] MEDS: LEVOFLOXACIN 750 MG TABLET PO SCH (09:36)
[2016-10-18] MEDS: CLOPIDOGREL 75 MG TABLET PO SCH (09:36)
[2016-10-18] MEDS: CARVEDILOL 6.25 MG TABLET PO SCH ×2 (09:36→21:46)
[2016-10-18] MEDS: INSULIN REGULAR 100 UNIT/ML SUBCUT SCH ×4 (09:37→21:42)
[2016-10-18] MEDS: INSULIN NPH 100 UNIT/ML SUBCUT SCH (09:42)
[2016-10-18] MEDS: POLYETHYLENE GLYCOL POWDER 17 GM PACK PO SCH (09:48)
[2016-10-18] MEDS: ENOXAPARIN 40 MG/0.4 ML SYRINGE SUBCUT SCH (09:48)
--- NOTE | 2016-10-18 12:33 | Hospitalist Progress Note ---
Assessment and Plan - Time spent with patient Time spent with patient: Less than 30 minutes (due to assessment, plan and documentation) (1) Acute on chronic diastolic CHF (congestive heart failure) Status: Acute Current Visit: Yes (2) Community acquired pneumonia Status: Acute Current Visit: Yes (3) Obstructive sleep apnea Status: Acute Current Visit: Yes (4) Diabetes mellitus Status: Chronic Current Visit: Yes Qualifiers: Diabetes mellitus type: type 2 Hospitalist: Subjective Interval history: Mr. Nguyen was seen sitting in bed eating his lung. He was admitted for community acquired pneumonia- no cx's grew; and acute diastolic chf exacerbation. He has been seen in consultation by Pulmonology and is s/p bronch yesterday. No cx's have grown at this point. CTA was negative for PE. He states that he is feeling much better after his bronch, and feels that he is "on the mend". Will continue his current therapy, labs in AM. Exam - Constitutional Vitals: Period Temp Pulse Resp BP Sys/Swann Pulse Ox Last 24 Hr 96.7 F-97.8 F 63-94 16-25 120-140/57-68 91-100 General appearance: normal weight, no acute distress - Head Head exam: Present: normal inspection, normocephalic - Eye Eye exam: Present: EOMI. Absent: scleral icterus Pupils: Present: BEBETO, normal accommodation - ENT ENT exam: Present: normal exam, normal oropharynx - Neck Neck exam: Present: normal inspection. Absent: lymphadenopathy - Respiratory Respiratory exam: Present: clear to auscultation bilaterally. Absent: accessory muscle use - Cardiovascular Cardiovascular exam: Present: regular rate and rhythm - GI/Abdominal GI/Abdominal exam: Present: normal bowel sounds, soft. Absent: tenderness - Extremities Exam Extremities exam: Present: normal inspection. Absent: edema - Back Exam Back exam: Present: normal inspection. Absent: muscle spasm - Neurological Exam Neurological exam: Present: alert, oriented X3 - Psychiatric Psychiatric exam: Present: normal affect, normal mood - Skin Skin exam: Present: normal color, warm, dry, intact Results - Labs CBC & BMP: 10/13/16 03:49 10/18/16 04:15 Lab Results: I have reviewed the past 24 hour labs
--- NOTE | 2016-10-18 12:40 | Pathology Report from [facility] ---
ACCESSION # : [id number] PATIENT NAME : Hubert Nguyen ORDERING DR : DAVID VÁZQUEZ MD CLINICAL HX: Pneumonia POST-OP DX: Same SPECIMEN INFO: Washing,Bronchial,RLL - 10 ml's cloudy with yellow fragments. CLASS: I CLASS COMMENTS: Benign respiratory cells, inflammationCELL BLOCK: Same CLASS LEGEND: CLASS 0 Material inadequate for diagnosis because of (see comment) CLASS I Absence of atypical or abnormal cells CLASS II Atypical Cytology but no evidence of malignancy CLASS III Cytology suggestive of but not conclusive for malignancy CLASS IV Cytology strongly suggestive of malignancy CLASS V Cytology conclusive for malignancy SERVICE DATE: 10/17/2016 REPORT DATE: 10/18/2016 PATHOLOGIST: Christopher Lim
--- NOTE | 2016-10-18 12:41 | Pathology Report from [facility] ---
ACCESSION # : [id number] PATIENT NAME : Hubert Nguyen ORDERING DR : DAVID VÁZQUEZ MD CLINICAL HX: Pneumonia POST-OP DX: Same SPECIMEN INFO: Brushings,Bronchial,RLL - 3 brushes (Received in [facility]). CLASS: II CLASS COMMENTS: Reactive respiratory cellsCELL BLOCK: Same CLASS LEGEND: CLASS 0 Material inadequate for diagnosis because of (see comment) CLASS I Absence of atypical or abnormal cells CLASS II Atypical Cytology but no evidence of malignancy CLASS III Cytology suggestive of but not conclusive for malignancy CLASS IV Cytology strongly suggestive of malignancy CLASS V Cytology conclusive for malignancy SERVICE DATE: 10/17/2016 REPORT DATE: 10/18/2016 PATHOLOGIST: Christopher Lim
[2016-10-18] MEDS: MAGNESIUM HYDROXIDE SUSP 30 ML UDCUP PO PRN (21:46)
[2016-10-18] MEDS: SILENOR 6 MG PO SCH (21:47)
[2016-10-19] MEDS: ALBUTEROL/IPRATROPIUM 3 ML NEB RESP TX SCH ×4 (01:31→20:02)
[2016-10-19] MEDS: VANCOMYCIN INJ 1,250 MG in SODIUM CHLORIDE 0.9% 250 ML IV SCH (04:12)
[2016-10-19 06:29] LABS: Eosinophils % 0.1 % (0.00-10.9); Hemoglobin 11.2 GM/DL (14.0-18.0); Immature Granulocytes % 0.5 %; Immature Granulocytes Absolute 0.08 #; Lymphocytes # 2.3 10*3/uL (1.4-4.0); Lymphocytes % 14.7 % (21.2-54.2); Mean Corpuscular HGB Conc 31.1 GM/DL (32-36); Mean Corpuscular Hemoglobin 27 PG (27-34); Mean Corpuscular Volume 87.6 FL (87-102); Mean Platelet Volume 10.2 FL (9.6-12.0); Monocytes # 1.1 10*3/uL (0.11-0.8); Monocytes % 6.8 % (1.7-12.7); Neutrophils # 12.2 10*3/uL (1.4-7.4); Neutrophils % 77.9 % (38.7-73.9); Platelet Count 322 10*3/uL (130-400); Red Blood Count 4.11 10*6/uL (3.8-5.5); Red Cell Distribution Width 14.6 % (9.3-17.3); White Blood Count 15.7 10*3/uL (4.5-13.71)
[2016-10-19 06:59] LABS: Calcium 8.6 MG/DL (8.5-10.1); Magnesium 2.2 MG/DL (1.8-2.4)
--- NOTE | 2016-10-19 07:51 | XRay Report ---
XR chest 2V Indication: Pneumonia. Chest 2 views: Comparison 10/12/16 shows improved aeration of the right midlung and lung base is still some patchy areas of inflammatory change. Left lung is clear. Heart size remains normal with stable median sternotomy wires are present. Impression: Improving right mid and basilar pneumonia. PROCEDURE INTERPRETED AT [facility] DEPARTMENT OF RADIOLOGY Final Report Signed by: Richard Gray M.D.
[2016-10-19] MEDS ORDERED: SODIUM PHOSPHATE ENEMA 133 ML BOTTLE RECTAL ONE (08:19)
--- NOTE | 2016-10-19 08:21 | Pulmonology Progress Note ---
Pulmonary - PN: Subj Interval history: This 76-year-old white male has had a respiratory infection going on for about a month. He has continued to be short of breath. He has infiltrates bilaterally primarily in the superior segment right lower lobe. He had a CT angiogram this morning showing no evidence of pulmonary emboli. He is for bronchoscopy to evaluate unresolved pneumonia. That is dictated separately. 10/18/2016 patient is feeling better this morning. He continues to have night sweats but says that they've gone on for many months. Doubt if there part of the current process. Cultures and cytology are pending from yesterday's bronchoscopy. Continue IV medications for now. Recheck chest x-ray tomorrow. 10/19/2016 patient again is feeling better. Chest x-ray shows marked improvement. Cultures have been negative. I think we can change to oral antibiotics. Since she got better with the vancomycin, I will use oral Bactrim. Also changed to oral prednisone. Patient having problems with constipation. Probably could be discharged in another day or so from pulmonary standpoint if stable on oral medicines. Exam (Progress Note) - Constitutional Vitals: Period Temp Pulse Resp BP Sys/Swann Pulse Ox Last 24 Hr 97.5 F-98.3 F 69-82 17-20 109-145/54-66 95-99 Exam: He is alert oriented afebrile. Pupils react to light. Throat is clear. Neck supple no bruits. Chest reveals a few rhonchi right lower lobe. Heart normal rate rhythm no murmurs. Abdomen soft nontender no masses. Bowel sounds present. Extremities no clubbing cyanosis or edema. Calves nontender. Chest sounds better today than yesterday. Results - Labs CBC & BMP: 10/19/16 05:53 10/19/16 05:53 Lab Results: I have reviewed the past 24 hour labs - Diagnostic Findings Procedure: Chest x-ray: image reviewed by me (right pulmonary infiltrate is about 75% clear compared to previous exam.) Assessment and Plan (1) Community acquired pneumonia Status: Acute Assessment and plan: His community-acquired pneumonia seems have followed the flu. A broader spectrum of bacteria. Would be concerned about possible staph. My concern is with no improvement in symptoms that he may have a resistant organism. Also must consider pulmonary thromboembolic disease. Metastatic disease would be far less likely. We will obtain chest CT PE protocol and plan bronchoscopy in the morning. He is on metformin so we will have to hold that and wait on the CT until electromechanical technician. 10/17/16 This basically is an unresolved pneumonia. Further evaluation in progress. Patient on broad-spectrum antibiotics. 10/18/2016 continuing broad-spectrum antibiotics pending cultures. Follow vancomycin levels and renal function. 10/19/2016 slowly resolving community-acquired pneumonia. Improved with current medicines. Can change to oral medications, we'll use Bactrim. Needs prednisone for 3 or 4 more days. Current Visit: Yes (2) Obstructive sleep apnea Status: Acute Assessment and plan: Patient is using his CPAP at night regularly. Current Visit: Yes (3) History of prostate cancer Status: Acute Assessment and plan: No signs of any recurrent disease. Current Visit: Yes (4) Diabetes mellitus Status: Chronic Assessment and plan: Glucoses in the 200s and 300s. Needs tighter control. 10/17/2016 glucose is still elevated. 10/18/2016 glucoses in 300s and 400s. Increase insulin. Reduce steroids a little. 10/19/2016 glucoses still on the high side. Tapering steroids. Increased dose of insulin. Current Visit: Yes Qualifiers: Diabetes mellitus type: type 2 (5) Atherosclerotic cardiovascular disease Status: Chronic Assessment and plan: No active angina. Normal LV function. Current Visit: Yes
[2016-10-19] MEDS: metFORMIN 850 MG TABLET PO SCH ×2 (09:33→20:22)
[2016-10-19] MEDS: CHOLECALCIFEROL 1,000 UNIT TABLET PO SCH (09:34)
[2016-10-19] MEDS: CLOPIDOGREL 75 MG TABLET PO SCH (09:34)
[2016-10-19] MEDS: PANTOPRAZOLE 40 MG TABLET PO SCH (09:34)
[2016-10-19] MEDS: CYANOCOBALAMIN 500 MCG TABLET PO SCH (09:34)
[2016-10-19] MEDS: LEVOFLOXACIN 750 MG TABLET PO SCH (09:34)
[2016-10-19] MEDS: RANOLAZINE 500 MG TABLET PO SCH ×2 (09:34→20:22)
[2016-10-19] MEDS: ASPIRIN EC 81 MG TABLET PO SCH (09:34)
[2016-10-19] MEDS: LOVASTATIN 20 MG TABLET PO SCH (09:34)
[2016-10-19] MEDS: LOSARTAN 50 MG TABLET PO SCH (09:34)
[2016-10-19] MEDS: CARVEDILOL 6.25 MG TABLET PO SCH ×2 (09:34→20:22)
[2016-10-19] MEDS: CETIRIZINE 10 MG TABLET PO SCH (09:34)
[2016-10-19] MEDS: FUROSEMIDE 40 MG TABLET PO SCH ×2 (09:35→16:12)
[2016-10-19] MEDS: ENOXAPARIN 40 MG/0.4 ML SYRINGE SUBCUT SCH (09:35)
[2016-10-19] MEDS: POLYETHYLENE GLYCOL POWDER 17 GM PACK PO SCH (09:35)
[2016-10-19] MEDS: SULFAMETHOX/TRIMETHOPRIM 800-160 MG TABLET PO SCH ×2 (09:35→20:22)
[2016-10-19] MEDS: predniSONE 20 MG TABLET PO SCH (09:35)
[2016-10-19] MEDS: INSULIN NPH 100 UNIT/ML SUBCUT SCH (09:41)
[2016-10-19] MEDS: INSULIN REGULAR 100 UNIT/ML SUBCUT SCH ×4 (09:41→21:14)
[2016-10-19] MEDS: GLIMEPIRIDE 4 MG TABLET PO SCH ×2 (09:41→16:12)
[2016-10-19] MEDS: methylPREDNISolone SOD SUC 40 MG/1 ML VIAL IV SCH (10:07)
--- NOTE | 2016-10-19 13:22 | Hospitalist Progress Note ---
Assessment and Plan (1) Community acquired pneumonia Status: Acute Assessment and plan: Continue with antibiotics. CBC in a.m. Appreciate input from pulmonary. Current Visit: Yes (2) Diabetes mellitus Status: Chronic Current Visit: Yes Qualifiers: Diabetes mellitus type: type 2 (3) Atherosclerotic cardiovascular disease Status: Chronic Current Visit: Yes Hospitalist: Subjective Interval history: The patient is resting comfortably. No acute changes. No fevers or chills. He states he feels acceptable. His white blood cell counts trending down. Pending [facility] cultures. Exam - Constitutional Vitals: Period Temp Pulse Resp BP Sys/Swann Pulse Ox Last 24 Hr 97.1 F-98.3 F 59-81 16-20 109-145/50-66 96-100 General appearance: normal weight - Eye Eye exam: Present: EOMI - ENT ENT exam: Present: normal exam - Respiratory Respiratory exam: Present: clear to auscultation bilaterally - Cardiovascular Cardiovascular exam: Present: regular rate and rhythm - GI/Abdominal GI/Abdominal exam: Present: normal bowel sounds - Extremities Exam Extremities exam: Present: normal inspection - Neurological Exam Neurological exam: Present: alert, oriented X3 Results - Labs CBC & BMP: 10/19/16 05:53 10/19/16 05:53
[2016-10-19] MEDS: MAGNESIUM HYDROXIDE SUSP 30 ML UDCUP PO PRN (21:13)
[2016-10-19] MEDS: SILENOR 6 MG PO SCH (22:56)
[2016-10-20] MEDS: ALBUTEROL/IPRATROPIUM 3 ML NEB RESP TX SCH ×3 (00:32→15:16)
[2016-10-20 05:55] LABS: Basophils % 0.1 % (0.0-0.8); Eosinophils % 0.3 % (0.00-10.9); Hematocrit 37.8 VOL% (42.0-52.0); Hemoglobin 11.8 GM/DL (14.0-18.0); Immature Granulocytes % 0.6 %; Immature Granulocytes Absolute 0.09 #; Lymphocytes # 2.3 10*3/uL (1.4-4.0); Lymphocytes % 15.2 % (21.2-54.2); Mean Corpuscular HGB Conc 31.2 GM/DL (32-36); Mean Corpuscular Hemoglobin 27 PG (27-34); Mean Corpuscular Volume 87.7 FL (87-102); Mean Platelet Volume 10.2 FL (9.6-12.0); Monocytes # 1.4 10*3/uL (0.11-0.8); Monocytes % 8.9 % (1.7-12.7); Neutrophils # 11.5 10*3/uL (1.4-7.4); Neutrophils % 74.9 % (38.7-73.9); Platelet Count 336 10*3/uL (130-400); Red Blood Count 4.31 10*6/uL (3.8-5.5); Red Cell Distribution Width 14.6 % (9.3-17.3); White Blood Count 15.3 10*3/uL (4.5-13.71)
[2016-10-20 06:33] LABS: Calcium 8.6 MG/DL (8.5-10.1); Magnesium 2.2 MG/DL (1.8-2.4); Osmolality,Calculated 282.3 MOS/KG (273-304)
[2016-10-20] MEDS: GLIMEPIRIDE 4 MG TABLET PO SCH (08:24)
[2016-10-20] MEDS: INSULIN REGULAR 100 UNIT/ML SUBCUT SCH ×2 (08:24→13:54)
[2016-10-20] MEDS: INSULIN NPH 100 UNIT/ML SUBCUT SCH (08:24)
[2016-10-20] MEDS: metFORMIN 850 MG TABLET PO SCH (08:25)
--- NOTE | 2016-10-20 09:06 | Pulmonology Progress Note ---
Pulmonary - PN: Subj Interval history: This 76-year-old white male has had a respiratory infection going on for about a month. He has continued to be short of breath. He has infiltrates bilaterally primarily in the superior segment right lower lobe. He had a CT angiogram this morning showing no evidence of pulmonary emboli. He is for bronchoscopy to evaluate unresolved pneumonia. That is dictated separately. 10/18/2016 patient is feeling better this morning. He continues to have night sweats but says that they've gone on for many months. Doubt if there part of the current process. Cultures and cytology are pending from yesterday's bronchoscopy. Continue IV medications for now. Recheck chest x-ray tomorrow. 10/19/2016 patient again is feeling better. Chest x-ray shows marked improvement. Cultures have been negative. I think we can change to oral antibiotics. Since she got better with the vancomycin, I will use oral Bactrim. Also changed to oral prednisone. Patient having problems with constipation. Probably could be discharged in another day or so from pulmonary standpoint if stable on oral medicines. 10/20/2016 patient much better. Can be discharged. I'll need to see him in the office in about one month. We'll get follow-up chest x-ray at that time. Needs Bactrim and prednisone for about 5 days. Exam (Progress Note) - Constitutional Vitals: Period Temp Pulse Resp BP Sys/Swann Pulse Ox Last 24 Hr 96 F-97.8 F 60-92 16-20 108-170/50-72 90-982 Exam: He is alert oriented afebrile. Pupils react to light. Throat is clear. Neck supple no bruits. Chest sounds clear. Heart normal rate rhythm no murmurs. Abdomen soft nontender no masses. Bowel sounds present. Extremities no clubbing cyanosis or edema. Calves nontender. Chest sounds better today than yesterday. Results - Labs CBC & BMP: 10/20/16 04:59 10/20/16 04:59 Lab Results: I have reviewed the past 24 hour labs Assessment and Plan (1) Community acquired pneumonia Status: Acute Assessment and plan: His community-acquired pneumonia seems have followed the flu. A broader spectrum of bacteria. Would be concerned about possible staph. My concern is with no improvement in symptoms that he may have a resistant organism. Also must consider pulmonary thromboembolic disease. Metastatic disease would be far less likely. We will obtain chest CT PE protocol and plan bronchoscopy in the morning. He is on metformin so we will have to hold that and wait on the CT until gang rider. 10/17/16 This basically is an unresolved pneumonia. Further evaluation in progress. Patient on broad-spectrum antibiotics. 10/18/2016 continuing broad-spectrum antibiotics pending cultures. Follow vancomycin levels and renal function. 10/19/2016 slowly resolving community-acquired pneumonia. Improved with current medicines. Can change to oral medications, we'll use Bactrim. Needs prednisone for 3 or 4 more days. 10/20/2016 symptoms are improving. Can be discharged. Needs Bactrim for about 5 more days. Prednisone for 3-5 days 40 mg daily. Current Visit: Yes (2) Obstructive sleep apnea Status: Acute Assessment and plan: Patient is using his CPAP at night regularly. Current Visit: Yes (3) History of prostate cancer Status: Acute Assessment and plan: No signs of any recurrent disease. Current Visit: Yes (4) Diabetes mellitus Status: Chronic Assessment and plan: Glucoses in the 200s and 300s. Needs tighter control. 10/17/2016 glucose is still elevated. 10/18/2016 glucoses in 300s and 400s. Increase insulin. Reduce steroids a little. 10/19/2016 glucoses still on the high side. Tapering steroids. Increased dose of insulin. 10/20/2016 glucoses should do okay off steroids. Current Visit: Yes Qualifiers: Diabetes mellitus type: type 2 (5) Atherosclerotic cardiovascular disease Status: Chronic Assessment and plan: No active angina. Normal LV function. Current Visit: Yes Specialty Discharge - Follow Up or Referrals Follow up with: Anatoly Montalvo MD [Physician] - (schedule for 1 month follow up with CXR)
[2016-10-20] MEDS: POLYETHYLENE GLYCOL POWDER 17 GM PACK PO SCH (09:27)
[2016-10-20] MEDS: ENOXAPARIN 40 MG/0.4 ML SYRINGE SUBCUT SCH (09:27)
[2016-10-20] MEDS: ASPIRIN EC 81 MG TABLET PO SCH (09:28)
[2016-10-20] MEDS: LEVOFLOXACIN 750 MG TABLET PO SCH (09:28)
[2016-10-20] MEDS: RANOLAZINE 500 MG TABLET PO SCH (09:28)
[2016-10-20] MEDS: predniSONE 20 MG TABLET PO SCH (09:29)
[2016-10-20] MEDS: LOVASTATIN 20 MG TABLET PO SCH (09:29)
[2016-10-20] MEDS: SULFAMETHOX/TRIMETHOPRIM 800-160 MG TABLET PO SCH (09:29)
[2016-10-20] MEDS: CHOLECALCIFEROL 1,000 UNIT TABLET PO SCH (09:30)
[2016-10-20] MEDS: LOSARTAN 50 MG TABLET PO SCH (09:31)
[2016-10-20] MEDS: PANTOPRAZOLE 40 MG TABLET PO SCH (09:31)
[2016-10-20] MEDS: FUROSEMIDE 40 MG TABLET PO SCH (09:31)
[2016-10-20] MEDS: CETIRIZINE 10 MG TABLET PO SCH (09:31)
[2016-10-20] MEDS: CYANOCOBALAMIN 500 MCG TABLET PO SCH (09:31)
[2016-10-20] MEDS: CLOPIDOGREL 75 MG TABLET PO SCH (09:34)
[2016-10-20] MEDS: CARVEDILOL 6.25 MG TABLET PO SCH (09:34)
[2016-10-20 13:07] VITALS: BP 142/67
--- NOTE | 2016-10-20 13:26 | Discharge Summary ---
Hospital Course - Hospital Course Hospital Course: This hospitalization included patient admitted for shortness of breath secondary to pneumonia. He required nasal oxygen at a time and also underwent bronchoscope. He had bronchial washings that were positive for Cheryl following cultures were negative. Patient continued on broad-spectrum antibiotics. Each day he showed signs of improvement. He remained afebrile. He is much stronger. He is He was able to be weaned off. Patient continued to do well. He is being transitioned to antibiotics by mouth. At this time he is reached maximal hospitalization. He will follow-up with outpatient pulmonary clinic in the next 3-4 weeks. Diagnosis - Discharge Diagnosis (1) Community acquired pneumonia Status: Acute (2) Diabetes mellitus Status: Chronic (3) Atherosclerotic cardiovascular disease Status: Chronic Specialty Discharge - Follow Up or Referrals Follow up with: Anatoly Montalvo MD [Physician] - (schedule for 1 month follow up with CXR) Discharge Plan - Discharge Data Disposition: Home Health Service Condition at Discharge: Stable Discharge Diet: advance to your usual diet Activity: resume usual activities as tolerated Hygiene: no restrictions Contact your physician if you experience:: fever over 101 - Discharge Medications New Lovastatin 40 mg PO DAILY #30 tablet Albuterol Inhaler [Proventil Inhaler] 2 puff INH Q4HR #1 inhaler Carvedilol [Coreg] 6.25 mg PO BID #60 tablet Furosemide Tab [Lasix Tab] 40 mg PO BID DIURETIC #60 tablet Lovastatin [Mevacor] 40 mg PO DAILY tablet predniSONE TAB [PredniSONE] 20 mg PO DAILY #10 tablet Continue Levocetirizine Dihydrochloride 5 mg PO DAILY Pantoprazole Sodium [Protonix] 40 mg PO DAILY Losartan Potassium 100 mg PO DAILY Vit C/Shellie AC/Lut/Copper/Znox [Preservision Lutein Softgel] 1 each PO AC Diltiazem HCl [Diltiazem ER (12 hr)] 120 mg PO DAILY Cyanocobalamin (Vitamin B-12) [Vitamin B-12] 1,000 mcg PO DAILY Ranolazine [Ranexa] 1,000 mg PO BID Aromatic Cascara Fluid Extract [Casc[place]] 1 caplet PO DAILY Glimepiride 2 mg PO AC SUPPER Glimepiride 4 mg PO AC BREAKFAST Aspirin [Ecotrin] 81 mg PO DAILY Doxepin [SINEquan] 6 mg PO BEDTIME Cholecalciferol (Vitamin D3) [Vitamin D3] 4,000 unit PO DAILY Metformin HCl 850 mg PO BID Clopidogrel [Plavix] 75 mg PO DAILY Sulfameth/Trimeth 800-160 Tab [Bactrim DS Tab] 1 tablet PO BID #10 tablet Discontinued Lovastatin 40 mg PO DAILY - Follow Up or Referral Follow Up: Anatoly Montalvo MD [Physician] - (schedule for 1 month follow up with CXR) - Forms/Instructions Additional Discharge Instructions: Follow-up with Dr. Montalvo as schedule. Follow-up primary provider 1 week. Home health Exam - Constitutional Vitals: Period Temp Pulse Resp BP Sys/Swann Pulse Ox Last 24 Hr 96 F-97.8 F 60-92 16-20 108-170/56-72 90-982 General appearance: normal weight - ENT ENT exam: Present: normal exam - Respiratory Respiratory exam: Present: clear to auscultation bilaterally - Cardiovascular Cardiovascular exam: Present: regular rate and rhythm - GI/Abdominal GI/Abdominal exam: Present: normal bowel sounds - Extremities Exam Extremities exam: Present: normal inspection - Neurological Exam Neurological exam: Present: alert, oriented X3 - Psychiatric Psychiatric exam: Present: normal affect, normal mood Discharge Results Procedures and tests throughout hospitalization: Pending Orders 10/17/16 AFB Culture/Smears Routine Fungal Culture w/ Prep Routine 10/17/16 07:54 Cytology Request Routine Labs on day of discharge: Labs from last 24 hours 10/20/16 10/20/16 10/20/16 11:34 07:02 04:59 WBC 15.3 H RBC 4.31 Hgb 11.8 L Hct 37.8 L MCV 87.7 MCH 27 MCHC 31.2 L RDW 14.6 Plt Count 336 MPV 10.2 Neut % (Auto) 74.9 H Lymph % (Auto) 15.2 L Maries % (Auto) 8.9 Eos % (Auto) 0.3 Baso % (Auto) 0.1 Neut # (Auto) 11.5 H Lymph # (Auto) 2.3 Maries # (Auto) 1.4 H Eos # (Auto) 0.0 Baso # (Auto) 0.0 Immature Gran % 0.6 Nucleated RBC % 0.0 Immature Gran # 0.09 Nucleated RBCs # 0.00 Sodium Potassium Chloride Carbon Dioxide Anion Gap BUN Creatinine GFR Calculation BUN/Creatinine Ratio Glucose POC Glucose 223 H 61 L Calculated Osmolality Calcium Magnesium 10/20/16 10/19/16 10/19/16 04:59 20:24 17:20 WBC RBC Hgb Hct MCV MCH MCHC RDW Plt Count MPV Neut % (Auto) Lymph % (Auto) Maries % (Auto) Eos % (Auto) Baso % (Auto) Neut # (Auto) Lymph # (Auto) Maries # (Auto) Eos # (Auto) Baso # (Auto) Immature Gran % Nucleated RBC % Immature Gran # Nucleated RBCs # Sodium 141 Potassium 4.0 Chloride 100 Carbon Dioxide 30 Anion Gap 15.0 BUN 25 H Creatinine 0.90 GFR Calculation 187 BUN/Creatinine Ratio 27.00 H Glucose 66 L POC Glucose 338 H 278 H Calculated Osmolality 282.3 Calcium 8.6 Magnesium 2.2 DS: Provider Date of admission: 10/11/16 02:12 Primary care physician: . No PCP Attending physician on admission: Bartolome Dia Consults: 10/16/16 08:12 Consult to Physician [CONS] Routine Comment: Pulmonary infiltrates, night sweats Consulting Provider: Consult to Specialist Group: Pulmonology When should Consulting Provider be notified: Now Consult Notification Comment: LEFT MESSAGE AT [id number] 10/16/16 09:55 Consult to Physical Therapy [CONS] Routine Reason for Physical Therapy: Weakness 10/16/16 12:59 Consult to Pharmacy [CONS] Routine Reason for Pharmacy Consult: Dose/Manage Vancomycin Discharging clinician: Shantanu Cannon Jr., MD
== END 2016-10-20 15:51 | disposition home health service (06) | DRG 193 ==
LOC: N.ED 21:19 → N.EDINP 10-11 02:11 → SUATTDRO 10-11 02:12 → N.TELEN 10-11 02:49 → N.TELES 10-12 06:27
PROVIDERS: ADMIT Hospitalist; ATTEND Internal Medicine Cardiovascular Disease
PROC: BRONCHB (2016-10-17 07:20)